=== PATIENT | female | born 1955 | race Caucasian/White ===

== ENCOUNTER 2022-03-27 13:42 | Emergency (ER) | payer BC, MEDICAID ==
[~2022-03-27] VITALS: Ht 165.1 cm; Wt 60.0 kg
[2022-03-27 13:44] VITALS: BP 168/88
[2022-03-27] MEDS ORDERED: ACETAMINOPHEN 325MG TABLET PO ONE (14:00)
[2022-03-27] MEDS ORDERED: KETOROLAC 15MG/ML VIAL IM ONE (17:30)
[2022-03-27] MEDS ORDERED: NAPR-420 MT (19:08)
== END 2022-03-27 19:32 | disposition home or self-care (01) ==
LOC: ER 13:46
DX: S42.491A Other displaced fracture of lower end of right humerus, initial encounter for closed fracture (principal); W18.39XA Other fall on same level, initial encounter; Y93.89 Activity, other specified; Y92.89 Other specified places as the place of occurrence of the external cause; Y99.8 Other external cause status; E11.9 Type 2 diabetes mellitus without complications; I10 Essential (primary) hypertension
CPT/HCPCS: 29105; 73030; 73060; 73080; 73090; 73110; 73130; 73610; 73630; 96372; 99284; J1885; A4565